=== PATIENT | male | born 1985 | race Caucasian/White ===

== ENCOUNTER 2018-08-18 08:27 | Emergency (ER) | payer OTHER ==
[~2018-08-18] VITALS: Ht 165.1 cm; Wt 79.0 kg
[2018-08-18 08:32] VITALS: Ht 165.1 cm; Wt 79.0 kg
[2018-08-18] MEDS ORDERED: IBUP-1542 PO (09:18)
[2018-08-18] MEDS ORDERED: CIPR7.5D RIGHT EAR (09:18)
[2018-08-18] MEDS ORDERED: AMOX1TAB10 PO (09:18)
[2018-08-18 10:04] VITALS: BP 125/75; PULSE 97; RESP 19
--- NOTE | 2018-08-18 16:42 | ERD ---
ER Documentation Chief Complaint Chief Complaint right ear pain and ringing x1wk HPI This is a 33-year-old male patient who presents emergency room with complaint of pain in his right ear x1 week. Patient states pain started in his left ear and has now transferred to the right ear, no longer having pain in the left ear. Denies dizziness, states some intermittent ringing in his ears. Patient denies fever, trauma, elevation such as air travel, scuba diving, recent URI. Patient does smoke cigarettes. Denies medical history. No sick contacts. ROS All systems reviewed and are negative except as per history of present illness. Medications Home Meds Active Scripts Ibuprofen* (Motrin*) 600 Mg Tab, 600 MG PO Q6, #30 TAB Prov:CHELO CALLOWAY NP 08/18/18 Ciprofloxacin Hcl/Dexameth (Ciprodex Otic Suspension) 7.5 Ml Drops.susp, 4 DROP RIGHT EAR BID for 7 Days, EA Prov:CHELO CALLOWAY NP 08/18/18 Amoxicillin/Potassium Clav (Amox-Clav 875-125 mg Tablet) 875-125 mg Tab, 1 TAB PO BID for 10 Days, #20 TAB Prov:CHELO CALLOWAY NP 08/18/18 PMhx/Soc Medical and Surgical Hx: pt denies Medical Hx, pt denies Surgical Hx Hx Alcohol Use: No Hx Substance Use: No Hx Tobacco Use: Yes Smoking Status: Current every day smoker FmHx Family History: No diabetes, No coronary disease, No other Physical Exam Vitals Vital Signs Date Temp Pulse Resp B/P (MAP) Pulse Ox O2 O2 Flow FiO2 Time Delivery Rate 08/18/18 97 19 125/75 100 Room Air 10:04 (92) 08/18/18 98.5 112 18 144/79 100 08:32 (100) Physical Exam Const: No acute distress Head: Atraumatic, tender to palpation at right mastoid and right upper neck, Eyes: Normal Conjunctiva ENT: Nose without drainage, Mouth without lesions or exudate; Left TM clear, left external canal clear; Right external canal with mild slough, TM with white solid lesion that appears to cross though TM such as with a cholesteatoma, TM intact, right pre-auricular tenderness, tender with movement of pinna Neck: Full range of motion. No meningismus. No lymphadenopathy. Resp: Clear to auscultation bilaterally Cardio: Regular rate and rhythm, no murmurs Abd: Soft, non tender, non distended. Normal bowel sounds Skin: No petechiae or rashes Neur: Awake and alert Psych: Anxious Mood and Affect Procedures/MDM This is a 33-year-old male patient who presents to the emergency room with complaint of right ear pain. DIAGNOSTIC IMAGING: CT indicated to investigate mastoiditis versus cholesteatoma or other etiology of pain. Patient refusing CT at this time due to fear of radiation and need for IV contrast. PROCEDURES: None. MEDICATIONS GIVEN: declines MDM: Patient does not have fever, bulging TM, recent URI, or other indications for acute otitis media. Patient does have tenderness at mastoid however low suspicion for mastoiditis as patient does not have other common symptoms of mastoiditis such as fever, URI, hearing loss, headache. Pt is nontoxic appearing . Lesion concerning for cholesteatoma. Patient will start course of antibiotics for possible AOM with instructions for reevaluation of ear in 7 days by PMD, ENT, or ER. Patient provided with strict instructions to return to the ER immediately with fever, worsening of pain, hearing loss, or bleeding from the ear. Instructed patient on need for CT and blood work for appropriate rony gnosis, encouraged patient to return to ED for appropriate evaluation. Patient provided with consequences of untreated mastoiditis or untreated cholesteatoma and importance of diagnostic exams and close follow-up. Patient refusing any further treatment, choosing to attempt outpatient therapy with antibiotics, patient verbalized understanding of signs and symptoms of worsening of condition and when to return to the ED. DISPOSITION: The patient has been discharge home to follow-up with community physician, patient provided with ENT referral list. Departure Diagnosis: Primary Impression: Otitis externa Additional Impression: Otitis media Condition: Stable Patient Instructions: Otitis Media, Abx Tx [Child], External Ear Infection (Adult) Referrals: TIFFANI WILLIS MD [facility] YOU HAVE RECEIVED A MEDICAL SCREENING EXAM AND THE RESULTS INDICATE THAT YOU DO NOT HAVE A CONDITION THAT REQUIRES URGENT TREATMENT IN THE EMERGENCY DEPARTMENT. FURTHER EVALUATION AND TREATMENT OF YOUR CONDITION CAN WAIT UNTIL YOU ARE SEEN IN YOUR DOCTORS OFFICE WITHIN THE NEXT 1-2 DAYS. IT IS YOUR RESPONSIBILITY TO MAKE AN APPOINTMENT FOR FOLOW-UP CARE. IF YOU HAVE A PRIMARY DOCTOR --you should call your primary doctor and schedule an appointment IF YOU DO NOT HAVE A PRIMARY DOCTOR YOU CAN CALL OUR PHYSICIAN REFERRAL HOTLINE AT IF YOU CAN NOT AFFORD TO SEE A PHYSICIAN YOU CAN CHOSE FROM THE FOLLOWING [facility] [address] [facility] [address] [facility] [address] [facility] [address] [facility] [address] [facility]. [facility]. [address] Additional Instructions: Thank you very much for allowing us to participate in your care. Your health and safety is our top priority at [facility]. Call your primary care doctor TOMORROW for an appointment during the next 2-4 days and bring all the information and medications prescribed. Have prescriptions filled and follow precisely the directions on the label. If the symptoms get worse and your provider is unavailable, return to the E mergency Department immediately. YOU MUST FOLLOW-UP WITH DOCTOR IN 3 DAYS FOR REEVALUATION OF RIGHT EAR. IF PAIN WORSENS OR FEVER >101.3, RETURN TO ER. COMPLETE ENTIRE COURSE OF ANTIBIOTICS, USE EAR DROPS. USE IBUPROFEN FOR PAIN AND DISCOMFORT. CHELO CALLOWAY NP August 18, 2018 16:42
== END 2018-08-18 10:05 | disposition home or self-care (01) ==
LOC: FTE 08:27
DX: H60.91 Unspecified otitis externa, right ear (principal); H66.91 Otitis media, unspecified, right ear; F17.210 Nicotine dependence, cigarettes, uncomplicated
CPT/HCPCS: 99283

== ENCOUNTER 2018-12-12 22:24 | Emergency (ER) | payer OTHER ==
[~2018-12-12] VITALS: Ht 168.9 cm; Wt 75.1 kg
[~2018-12-12 22:24] MED LIST: AMOX1TAB10 PO; AMOX500C2 PO; CIPR7.5D RIGHT EAR; IBUP-1542 PO; IBUP800T48 PO
[2018-12-12 22:27] VITALS: BP 156/93; PULSE 106; RESP 16; Ht 168.9 cm; Wt 75.1 kg
== END 2018-12-12 22:43 | disposition home or self-care (01) ==
LOC: E/R 22:24
DX: H66.002 Acute suppurative otitis media without spontaneous rupture of ear drum, left ear (principal); Z87.891 Personal history of nicotine dependence
CPT/HCPCS: 99283